=== PATIENT | female | born 1970 | race African-American/Black ===

== ENCOUNTER 2018-10-15 15:14 | Emergency (ER) | payer MEDICAID ==
[~2018-10-15] VITALS: Ht 167.6 cm; Wt 65.0 kg
[2018-10-15 21:32] VITALS: BP 119/69
== END 2018-10-15 21:33 | disposition home or self-care (01) ==
LOC: ER 15:14
DX: R51 Headache (principal); F12.10 Cannabis abuse, uncomplicated; R11.0 Nausea; R42 Dizziness and giddiness; F17.200 Nicotine dependence, unspecified, uncomplicated
CPT/HCPCS: 99283

== ENCOUNTER 2025-01-10 08:06 | Emergency (ER) | payer MEDICAID ==
[~2025-01-10] VITALS: Ht 167.6 cm; Wt 82.0 kg
[2025-01-10 08:13] VITALS: BP 146/96; TEMP 36.8; O2SAT 96
[2025-01-10 08:14] VITALS: PULSE 101; RESP 18; O2SAT 97
[2025-01-10 08:50] LABS: BASOPHILS % 1.0 % (0.0-2.0); EOSINOPHILS % 0.4 % (0.0-5.0); HEMATOCRIT. 43.7 % (36.0-48.0); HEMOGLOBIN. 14.9 g/dL (12.0-16.0); LYMPHOCYTES % 47.4 % (20.0-50.0); MEAN PLATELET VOLUME 8.7 fl (7.4-10.4); MONOCYTES % 9.5 % (2.0-8.0); NEUTROPHILS % 41.7 % (40.0-76.0); PLATELET 224 x1000/uL (130-400); RED BLOOD CELL COUNT 4.78 mill/uL (4.2-5.4); RED CELL DISTRIBUTION WIDTH 14.4 % (11.6-14.6)
[2025-01-10 09:04] LABS: CREATININE 1.2 mg/dL (0.6-1.0); UREA NITROGEN BLOOD 11.0 mg/dL (9-23)
[2025-01-10] MEDS: MECLIZINE 25MG TABLET PO ONE (09:26)
[2025-01-10] MEDS ORDERED: MECL-299 MT (10:02)
== END 2025-01-10 10:10 | disposition home or self-care (01) ==
LOC: ER 08:06
DX: S90.511A Abrasion, right ankle, initial encounter (principal); S93.401A Sprain of unspecified ligament of right ankle, initial encounter; R42 Dizziness and giddiness; I10 Essential (primary) hypertension; W18.2XXA Fall in (into) shower or empty bathtub, initial encounter; Y93.E1 Activity, personal bathing and showering; Y92.89 Other specified places as the place of occurrence of the external cause; Y99.8 Other external cause status
CPT/HCPCS: 99284; 70450; 80048; 85025; 36415; 73610; J8597